=== PATIENT | female | born 1955 | race Caucasian/White ===

== ENCOUNTER → 2016-11-07 16:36 | Outpatient (CLI) | payer BC ==
[2013-12-16 13:32] VITALS: BMI 30.9
[~2016-11-07 16:36] MED LIST: AMBIEN10 MG PO; AMBIEN5 MG PO; AVAPRO300 MG PO; HYDROCHLOROTHIA25 MG PO; PRAVACHOL40 MG PO; PRILOSEC20 MG PO; PROZAC40 MG PO; XANAX0.5 MG PO
== END | disposition home or self-care (01) ==
LOC: D.MAMMO 14:45
DX: Z12.31 Encounter for screening mammogram for malignant neoplasm of breast (principal)

== ENCOUNTER → 2017-05-26 15:42 | Outpatient (CLI) | payer BC ==
[2013-12-16 13:32] VITALS: BMI 30.9
== END | disposition home or self-care (01) ==
LOC: D.CT 15:42
DX: R19.01 Right upper quadrant abdominal swelling, mass and lump (principal)

== ENCOUNTER → 2017-11-20 07:20 | Outpatient (CLI) | payer BC ==
[2013-12-16 13:32] VITALS: BMI 30.9
[2017-11-20 08:30] LABS: ALBUMIN 4.1 g/dL (3.4-5.0); BILIRUBIN - DIRECT 0.07 mg/dL (0.00-0.30); BILIRUBIN - INDIRECT 0.19 mg/dL (0.00-1.00); BILIRUBIN - TOTAL 0.26 mg/dL (0.2-1.3); PROTEIN - SERUM 8.1 g/dL (6.4-8.2)
== END | disposition home or self-care (01) ==
LOC: D.US 11-18 09:30
PROVIDERS: Internal Medicine Gastroenterology
DX: R79.89 Other specified abnormal findings of blood chemistry (principal)

== ENCOUNTER → 2018-01-15 15:55 | Outpatient (CLI) | payer BC ==
[2013-12-16 13:32] VITALS: BMI 30.9
== END | disposition home or self-care (01) ==
LOC: D.CT 15:55
DX: R22.9 Localized swelling, mass and lump, unspecified (principal)

== ENCOUNTER → 2018-01-21 18:27 | Outpatient (CLI) | payer BC ==
[2013-12-16 13:32] VITALS: BMI 30.9
== END | disposition home or self-care (01) ==
LOC: D.MAMMO 16:15
DX: Z12.31 Encounter for screening mammogram for malignant neoplasm of breast (principal)

== ENCOUNTER → 2018-05-14 06:55 | Outpatient (CLI) | payer BC ==
[2013-12-16 13:32] VITALS: BMI 30.9
[2018-05-14 09:09] LABS: ALBUMIN 4.1 g/dL (3.4-5.0); BILIRUBIN - DIRECT 0.12 mg/dL (0.00-0.30); BILIRUBIN - INDIRECT 0.24 mg/dL (0.00-1.00); BILIRUBIN - TOTAL 0.36 mg/dL (0.2-1.3); PROTEIN - SERUM 8.2 g/dL (6.4-8.2)
== END | disposition home or self-care (01) ==
LOC: D.US 06:55
PROVIDERS: Internal Medicine Gastroenterology
DX: K76.0 Fatty (change of) liver, not elsewhere classified (principal)

== ENCOUNTER 2018-08-21 10:29 | Observation (INO) | payer BC ==
[~2018-08-21] VITALS: Ht 162.6 cm; Wt 78.6 kg
--- NOTE | ~2018-08-21 | HEMODYNAMI ---
PATIENT:RAYMOND QUICK MEDICAL RECORD: [id number] : 59 LOCATION:[facility] D.2110 ADMISSION DATE: 08/21/18 Generatedon:08/23/20189:00 Patient name: RAYMOND QUICK Patient #: [id number] SSN: : 1955 Date of study: 08/23/2018 Page: Of Hemodynamic Procedure Report Patient Data Patient Demographics Procedure consent was obtained First Name: RAYMOND Gender: Female Last Name: ABDELRAHMAN : 1955 Middle Initial: JOANN Age: 63 year(s) Patient #: [id number] Race: Unknown Additional ID: [id number] Contact details [address]: [address] [place] [address] State: [place] City: [place] Zip code: [address] Admission Admission Data Admission Date: 08/21/2018 Admission Time: 12:05 Room #: D.0 Weight (lbs.): 174.17 Weight (kg.): 79 Procedure Procedure Types Cath Procedure Diagnostic Procedure C LH w/Coronaries Procedure Description Procedure Date Procedure Date: 08/23/2018 Procedure Start Time: 8:46 Procedure End Time: 8:58 Procedure Staff Name Function Jono Merchant MD Performing Physician Deborah Cavanaugh RT Monitor Hilda Arellano RT Scrub Susanna Oliveros RN Nurse Procedure Data Cath Procedure Fluoroscopy Diagnostic fluoroscopy Total fluoroscopy Time: 1.3 time: 1.3 min min Diagnostic fluoroscopy Total fluoroscopy dose: 352 dose: 352 mGy mGy Contrast Material Contrast Material Type Amount (ml) Isovue 300 54 Entry Location Entry Primary Successful Side Size Upsize Upsize Entry Closure Succes sful Closure Location (Fr) 1 (Fr) 2 (Fr) Remarks Device Remarks Femoral Right 5 Fr Exoseal artery Estimated blood loss: 5 ml Diagnostic catheters Device Type Used For End Catheter Placement MULTIPACK JL 4.0 5Fr Procedure catheter MULTIPACK 3DRC 5Fr Procedure catheter MULTIPACK Pigtail 5 Fr Procedure catheter Procedure Complications No complications Procedure Medications Medication Administration Route Dosage 0.9% NaCl I.V. 100 ml/hr Oxygen etCO2 Nasal cannula 2 l/min Lidocaine 2% added to field 20 Heparin Flush Bag added to field 2 bags (1000units/500ml NS) Versed I.V. 2 mg Fentanyl I.V. 50 mcg Versed I.V. 2 mg Fentanyl I.V. 50 mcg Hemodynamics Rest Heart Rate: 73 (bpm) Pressure Samples Time Site Value (mmHg) Purpose Heart Use Rate(bpm) 8:53 LV 135/2,17 Snapshot 85 8:54 AO 138/81(108) Pullback 83 8:54 LV 142/4,23 Pullback 83 Gradients Valve Time Site 1 Site 2 Mean SEP/DFP Peak To Heart Use (mmHg) (sec/min) Peak Rate (mmHg) (bpm) Aortic 8:54 LV AO 5 23 4 83 142/4,23 138/81(108) Calculations Valve P-P Mean Valve Index Valve Source Name Gradient Area Flow (cm2) Aortic 4 5 4 5 Snapshots Pre Cath Intra NCS Post Cath Vital Signs Time Heart Resp SPO2 etCO2 NIBP (mmHg) Rhythm Pain Sedation Rate (ipm) (%) (mmHg) Status Level (bpm) 8:28:29 76 16 100 35.2 142/88(129) NSR 0 (11) 10(A) , No pain 8:32:49 76 21 99 29.9 144/84(120) NSR 0 (11) 10(A) , No pain 8:37:01 79 17 98 38.9 132/79(108) NSR 0 (11) 10(A) , No pain 8:41:17 83 16 98 37.4 130/83(107) NSR 0 (11) 10(A) , No pain 8:45:31 83 14 97 38.1 130/79(102) NSR 0 (11) 10(A) , No pain 8:49:49 82 14 98 36.7 127/80(98) NSR 0 (11) 9(A) , No pain 8:54:03 84 14 98 38.9 132/83(107) NSR 0 (11) 9(A) , No pain 8:58:19 80 12 98 45.6 133/82(103) NSR 0 (11) 9(A) , No pain Medications Time Medication Route Dose Verified Delivered Reason Notes Effe ctiveness by by 8:26:37 0.9% NaCl I.V. 100 Jono Susanna used for ml/hr Mayur Oliveros market research associate 8:26:44 Oxygen etCO2 2 Jono Susanna used for Nasal l/min Mayur Oliveros procedure cannula RN 8:26:49 Lidocaine 2% added 20ml Jono Jono for local to vial Mayur Merchant MD anesthetic field 8:26:53 Heparin Flush added 2 Jono Jono used for Bag to bags Mayur Merchant MD procedure (1000units/500ml field NS) 8:44:01 Fentanyl I.V. 50 Jono Susanna for mcg Mayur Oliveros sedation RN 8:44:51 Versed I.V. 2 mg Jono Susanna for Mayur Oliveros sedation RN 8:49:03 Versed I.V. 2 mg Jono Susanna for Mayur Oliveros sedation RN 8:49:09 Fentanyl I.V. 50 Jono Susanna for mcg Mayur Oliveros sedation security services manager Log Time Note 8:03:01 Signed procedure consent form obtained from patient. 8:03:03 Diagnostic Cath status Elective 8:03:07 Time tracking: Regular hours (M-F 7:00 - 5:00) 8:03:11 Plan of Care:Hemodynamics will remain stable., Cardiac rhythm will remain stable., Comfort level will be maintained., Respiratory function will remain adequate., Patient/ family verbilizes understanding of procedure., Procedure tolerated without complication., Recovers from procedure without complications.. 8:16:19 Hilda Arellano RT(R) sent for patient. Start room use. 8:26:37 0.9% NaCl 100 ml/hr I.V. was administered by Susanna Oliveros RN; used for procedure; 8:26:44 Oxygen 2 l/min etCO2 Nasal cannula was administered by Susanna Oliveros RN; used for procedure; 8:26:49 Lidocaine 2% 20ml vial added to field was administered by Jono Merchant MD; for local anesthetic; 8:26:53 Heparin Flush Bag (1000units/500ml NS) 2 bags added to field was administered by Jono eMrchant MD; used for procedure; 8:27:17 Vital chart was started 8:27:46 Patient received from Pre/Post Procedure Room to CCL 1 Alert and oriented. Tansferred to table in Supine position. 8:27:48 Warm blankets applied, and namita hugger turned on for patient comfort. 8:27:48 Correct patient and procedure confirmed by team. 8:27:50 ECG and BP/O2 sat monitors applied to patient. 8:27:52 Baseline sample Acquired. 8:27:55 Rhythm: sinus rhythm 8:27:57 Full Disclosure recording started 8:28:01 H&P Date Dictated: 08/23/2018 New H&P dictated by physician.. 8:28:03 Pre-procedure instructions explained to patient. 8:28:03 Pre-op teaching completed and patient verbalized understanding. 8:28:04 Family in waiting room. 8:28:05 Patient NPO since Midnight. 8:28:08 Is the patient allergic to Iodine/contrast media? No. 8:28:09 Was the patient premedicated? No 8:28:17 Is patient on blood thinner?No 8:28:19 Patient diabetic? No. 8:28:23 Previous problem with sedation/anesthesia? No ? 8:28:25 Snore? Yes 8:28:26 Sleep apnea? Yes 8:28:27 Deviated septum? No 8:28:28 Opens mouth fully? Yes 8:28:29 Sticks out tongue? Yes 8:28:31 Airway obstruction? No ? 8:28:34 Dentures? No ? 8:28:38 Pre procedure: right dorsailis pedis pulse 2+ Normal; easily identifiable; not easily obliterated 8:28:40 Pre procedure: left dorsailis pedis pulse 2+ Normal; easily identifiable; not easily obliterated 8:28:42 Patient pain scale 0/10 ?. 8:28:50 IV patent on arrival in right wrist with 0.9% NaCl at KVO. 8:28:52 Lab results completed and on chart. 8:28:56 Right groin area was prepped with chlora-prep and draped in sterile fashion 8:28:57 Alarms reviewed by R. N. 8:28:58 Sharps counted by scrub and verified by R.N. 8:30:04 Use device set Femoral Dx 8:30:09 ACIST Syringe (09657) opened to sterile field. 8:30:10 Bag Decanter (2002S) opened to sterile field. 8:30:12 ACIST Hand Control (23845) opened to sterile field. 8:30:13 ACIST Manifold (96720) opened to sterile field. 8:30:14 Tegaderm 4 x 4 (1626W) opened to sterile field. 8:30:15 Medline Cath Pack ([id number]) opened to sterile field. 8:30:15 DIAGNOSTIC WIRE .035 260cm J wire (022705) opened to sterile field. 8:30:16 DIAGNOSTIC Multipack 5Fr catheter set ([id number]) opened to sterile field. 8:30:17 SHEATH 5FR [place] (IKF288) opened to sterile field. 8:40:02 Zero performed for pressure channel P1 8:42:48 --------ALL STOP TIME OUT------ 8:42:49 Final Timeout: patient, procedure, and site verified with staff and physician. All members of the team are in agreement. 8:42:50 Right groin site verified by team. 8:42:53 Maximum allowable Isovue 300 dose 300ml. Physician notified. (300ml for normal creatinines. For patients with creatinine of 1.7 or higher multiply weight(kg) x 5 divided by creatinine.) 8:42:57 Fire Safety Assessment: A--An alcohol-based skin anteseptic being used preoperatively., C--Open oxygen or nitrous oxide is being used., D--An ESU, laser, or fiber-optic light is being used. 8:43:00 Physical assessment completed. ASA score P 2 - A patient with mild systemic disease as per Jono Merchant MD. 8:43:02 Sedation plan: IV Moderate Sedation Medication:Versed, Fentanyl 8:44:01 Fentanyl 50 mcg I.V. was administered by Susanna Oliveros RN; for sedation; 8:44:05 Patient Weight : 174.17 lbs 8:44:51 Versed 2 mg I.V. was administered by Susanna Oliveros RN; for sedation; 8:46:10 Procedure started. 8:46:27 Local anesthetic to right femoral artery with Lidocaine 2% by Jono Merchant MD.INITIAL ACCESS ONLY 8:48:05 A 5 Fr sheath was inserted into the Right Femoral artery 8:49:00 A MULTIPACK JL 4.0 5Fr catheter was advanced over the wire and used for Procedure. 8:49:03 Versed 2 mg I.V. was administered by Susanna Oliveros RN; for sedation; 8:49:09 Fentanyl 50 mcg I.V. was administered by Susanna Oliveros RN; for sedation; 8:49:55 LCA angiography performed. 8:50:17 Catheter exchanged over wire. 8:50:52 A MULTIPACK 3DRC 5Fr catheter was advanced over the wire and used for Procedure. 8:51:41 RCA angiography performed. 8:51:52 Catheter exchanged over wire. 8:52:37 A MULTIPACK Pigtail 5 Fr catheter was advanced over the wire and used for Procedure. 8:53:08 LV gram done using REES 8:53:28 Injector settings: Ml/sec: 10, Volume: 20, 8:53:30 LV hemodynamics recorded. 8:53:40 EF : 55 % 8:54:08 Catheter removed. 8:54:10 EXOSEAL 5Fr (EX500) opened to sterile field. 8:55:33 Sheath removed intact; hemostasis achieved with Exoseal to the Right Femoral artery. 8:55:35 Procedure ended.(Physican Out) 8:55:51 Fluoroscopy time 01.30 minutes. 8:55:55 Fluoroscopy dose: 352 mGy 8:55:55 Flurop Dose total: 352 8:56:12 Contrast amount:Isovue 300 54ml. 8:56:14 Sharps counted by scrub and verified by R.N. 8:56:16 Post-op/insertion site Right Femoral artery dressed using a 4 x 4 and Tegaderm. 8:56:19 Post-procedure physical assessment completed. ASA score P 2 - A patient with mild systemic disease as per Jono Merchant MD. 8:56:22 Post procedure rhythm: sinus rhythm 8:56:25 Estimated blood loss: 5 ml 8:56:38 Post procedure instruction explained to patient.Patient verbalizes understanding. 8:56:38 Patient needs reinforcement of post procedure teaching. 8:57:23 Procedure and supply charges have been captured, reviewed, submitted and are correct. 8:57:26 Procedure Complication : No complications 8:58:25 Vital chart was stopped 8:58:25 See physician's report for complete and final results. 8:58:28 Report given to [facility]. 8:58:30 Patient transfered to Med II with Bed. 8:58:32 Procedure ended. 8:58:32 Full Disclosure recording stopped 8:58:37 End room use (Document Last) Device Usage Item Name Manufacture Quantity Catalog Hospital Part Current Minimal L ot# / Number Charge Number Stock Stock Serial# Code [id number] Acist 1 46564 [id number] 636085 336905 20 Syringe Medical (45295) Systems Inc Bag Microtek 1 2001S 684716 58784 806539 5 Decanter Medical Inc. (2001S) ACIST Hand Acist 1 77623 942687 144824 254728 5 Control Medical (36155) Systems Inc ACIST Acist 1 27220 057460 278752 870089 5 Manifold Medical (19825) Systems Inc Tegaderm 4 3M 1 1626W 948247 932349 979359 5 x 4 (1626W) Medline Medline 1 [id number] 822499 24795 104880 5 Cath Pack ([id number]) DIAGNOSTIC [facility] [place] 1 492893 865708 517668 409471 30 WIRE .035 260cm J wire (116830) DIAGNOSTIC Cardinal 1 GY1807 707505 33214 445232 30 Multipack Health 5Fr catheter set (LQ8884) SHEATH 5FR Terumo 1 QMI322 531757 666709 491576 5 [place] (LJB307) MULTIPACK Cardinal 1 099995 5 JL 4.0 5Fr Health catheter MULTIPACK Cardinal 1 410721 5 3DRC 5Fr Health catheter MULTIPACK Cardinal 1 525554 5 Pigtail 5 Health Fr catheter EXOSEAL 5Fr Cardinal 1 EX500 268927 340436 708596 10 (EX500) Health Signature Audit [place] Stage Time Signature Unsigned Intra-Procedure 08/23/2018 Deborah Cavanaugh 9:00:43 AM RT(R) Signatures Monitor : Deborah Cavanaugh Signature : RT Date : Time : [place] [address]
[2018-08-21] MEDS ORDERED: BUPROPION HCL100 MG PO ×2 (10:36→13:14)
[2018-08-21] MEDS ORDERED: EDARBYCLOR 40-1 EAC1 PO (10:37)
[2018-08-21] MEDS ORDERED: [UNRECOGNIZED DRUG - OTHER] (10:38)
[2018-08-21] MEDS ORDERED: SEMAGLUTIDE (10:38)
[2018-08-21] MEDS ORDERED: CO Q-10400 MG PO ×2 (10:38→13:03)
[2018-08-21] MEDS ORDERED: BAYER CHEWABLE81 MG PO (10:38)
[2018-08-21 10:51] LABS: BASOPHILS 0.4 % (0-2); EOSINOPHILS 1.3 % (0-7); HEMATOCRIT 38.6 % (36.0-48.0); HEMOGLOBIN 13.5 g/dL (12-16); IMMATURE GRANULOCYTES 0.2 % (0-5); LYMPHOCYTES 47.7 % (15-50); MCH 32.1 pg (26.0-34.0); MCV 91.7 fL (80.0-100.0); MEAN PLATELET VOLUME 9.7 fL (7.4-10.4); MONOCYTES 9.8 % (2-11); NEUTROPHILS 40.6 % (40-80); PLATELET COUNT 227 10x3/uL (130-400); RBC 4.21 10x6/uL (4.00-5.40); WBC 4.8 10x3/uL (4.8-10.8)
[2018-08-21 10:55] LABS: APTT 27.6 SECONDS (22.8-39.4); INR 0.99 (0.85-1.17); PROTIME 12.6 SECONDS (11.6-15.0)
[2018-08-21 11:11] VITALS: BP 135/79
[2018-08-21 11:19] LABS: ALBUMIN 4.3 g/dL (3.4-5.0); ALKALINE PHOSPHATASE 90 U/L (46-116); ALT (SGPT) 49 U/L (10-68); CALC OSMOLALITY 275 mosm/kg (275-300); CALCIUM 9.3 mg/dL (8.5-10.1); CHLORIDE - SERUM 103 mmol/L (98-107); CREATININE - SERUM 0.6 mg/dL (0.6-1.3); GLUCOSE 85 mg/dL (74-106); POTASSIUM - SERUM 4.4 mmol/L (3.5-5.1); PROTEIN - SERUM 8.5 g/dL (6.4-8.2); SODIUM 139 mmol/L (136-145); UREA NITROGEN 11 mg/dL (7-18); eGFR NON AFRICAN AMERICAN > 90 mL/min (90-120)
[2018-08-21 11:28] LABS: CREATINE KINASE 556 UL (21-215); TROPONIN-I < 0.017 ng/mL (0.000-0.060)
[2018-08-21 12:16] VITALS: BP 134/93
[2018-08-21 12:46] VITALS: BP 146/85; BMI 30.1
--- NOTE | 2018-08-21 12:56 | NUR ---
BILAT SCDS ON.
[2018-08-21] MEDS ORDERED: EDARBI40 MG PO (13:06)
[2018-08-21] MEDS ORDERED: PRAVACHOL20 MG PO (13:10)
--- NOTE | 2018-08-21 13:17 | NUR ---
ALERT AND ORIENTED. NITRO PATCH PLACED ON PATIENT ORDERED. MED REC COMPLETED PER NURSE/PATIENT. NO C/O PAIN AT THIS TIME.
[2018-08-21 14:22] VITALS: Ht 162.6 cm; Wt 78.6 kg
--- NOTE | 2018-08-21 14:39 | NUR ---
HAS JOHN LE SCD'S ON.
--- NOTE | 2018-08-21 16:45 | NUR ---
NO CHANGE IN ASSESSMENT. FAMILY AT BS. CL IN REACH. SCDS AND TELEMETRY PLACED ON PATIENT. CL IN REACH. SAFETY INSTRUCTIONS GIVEN TO USE CL FOR ASSIST AND FALL PREVENTION.
[2018-08-21 16:47] VITALS: BP 107/69
[2018-08-21 17:04] LABS: CKMB 1.9 U/L (0.0-3.6); CREATINE KINASE 420 UL (21-215); TROPONIN-I < 0.017 ng/mL (0.000-0.060)
[2018-08-21 19:50] VITALS: BP 127/69
[2018-08-21 19:55] LABS: APPEARANCE CLEAR (CLEAR); BILIRUBIN NEGATIVE (NEGATIVE); COLOR YELLOW (YELLOW); GLUCOSE NEGATIVE (NEGATIVE); KETONE NEGATIVE (NEGATIVE); NITRITE NEGATIVE (NEGATIVE); PROTEIN NEGATIVE (NEGATIVE); UROBILINOGEN NORMAL (NORMAL)
--- NOTE | 2018-08-21 20:00 | NUR ---
EVENING ROUNDS COMPLETED. REPORT RECEIVED. PT SITTING UP IN BED WITH EYES OPEN, RR EVEN AND UNLABORED. BED IN LOW POSITION. NO S/S OF DISTRESS NOTED. INTRODUCED SELF TO PT. PT DENIES FURTHER NEEDS AT THIS TIME. URINE COLLECTED ORDERED AND SENT TO LAB. CALL LIGHT IN REACH. 82 SINUS ON TELEMETRY. RIGHT FOREARM PIV INFUSING NORMAL SALINE ORDERED. WILL CTM.
[2018-08-21 22:13] LABS: CKMB 1.5 U/L (0.0-3.6); CREATINE KINASE 403 UL (21-215)
[2018-08-21 22:14] LABS: TROPONIN-I < 0.017 ng/mL (0.000-0.060)
[2018-08-21 23:55] VITALS: BP 122/73
--- NOTE | 2018-08-22 02:03 | NUR ---
I have reviewed this patient and I concur with the Shift Assessment completed by the Licensed Practical Nurse today this shift.
[2018-08-22 02:45] LABS: BASOPHILS 0.4 % (0-2); EOSINOPHILS 2.6 % (0-7); HEMATOCRIT 35.8 % (36.0-48.0); IMMATURE GRANULOCYTES 0.2 % (0-5); MCH 31.2 pg (26.0-34.0); MCHC 33.5 g/dL (31.0-37.0); MEAN PLATELET VOLUME 9.8 fL (7.4-10.4); MONOCYTES 13.2 % (2-11); NEUTROPHILS 41.6 % (40-80); PLATELET COUNT 189 10x3/uL (130-400); RBC 3.85 10x6/uL (4.00-5.40); WBC 4.7 10x3/uL (4.8-10.8)
[2018-08-22 02:59] LABS: CALCIUM 8.7 mg/dL (8.5-10.1); CARBON DIOXIDE 25.8 mmol/L (21.0-32.0); CHLORIDE - SERUM 106 mmol/L (98-107); CKMB 1.4 U/L (0.0-3.6); CREATINE KINASE 332 UL (21-215); CREATININE - SERUM 0.7 mg/dL (0.6-1.3); GLUCOSE 96 mg/dL (74-106); SODIUM 139 mmol/L (136-145); eGFR NON AFRICAN AMERICAN 90 mL/min (90-120)
[2018-08-22 03:02] LABS: CALC OSMOLALITY 278 mosm/kg (275-300); TROPONIN-I < 0.017 ng/mL (0.000-0.060); UREA NITROGEN 16 mg/dL (7-18)
[2018-08-22 03:55] VITALS: BP 118/67
[2018-08-22 04:30] VITALS: BP 117/64
--- NOTE | 2018-08-22 07:30 | NUR ---
REPORT RECIEVED AND MORNING ROUNDING COMPLETE. PT LATIN IN BED IN SUPINE POSITION. EYES CLOSED BREATHING EVEN AND UN LABORED. NC @ 3L, AND PIV PATIENT AND RUNNING NS AT KVO. PT HAS SCDS ON AND RUNNING AT THIS TIME. CALL LIGHT WITHIN REACH AND BED IN LOWEST POSITION.
[2018-08-22 08:10] VITALS: BP 117/72
[2018-08-22 13:10] VITALS: BP 129/73
--- NOTE | 2018-08-22 13:16 | NUR ---
I have reviewed this patient and I concur with the Shift Assessment completed by the Licensed Practical Nurse today this shift.
[2018-08-22 16:20] VITALS: BP 120/70
--- NOTE | 2018-08-22 19:42 | NUR ---
EVENING ROUNDS COMPLETED. REPORT RECEIVED. PT SITTING UP IN BED SIDE CHAIR WITH EYES OPEN, RR EVEN AND UNLABORED. RIGHT FOREARM INFUSING NORMAL SALINE ORDERED. NO S/S OF DISTRESS NOTED. INTRODUCED SELF TO PT. PT DENIES FURTHER NEEDS AT THIS TIME. CALL LIGHT IN REACH. WILL CTM.
[2018-08-23 00:25] VITALS: BP 133/74
--- NOTE | 2018-08-23 04:36 | NUR ---
PT LYING IN BED WITH EYES CLOSED, RR EVEN AND UNLABORED. BED IN LOW POSITION. NO S/S OF DISTRESS. 88 NORMAL SINUS ON TELEMETRY. CALL LIGHT IN REACH. WILL CTM.
[2018-08-23 05:33] VITALS: BP 125/77
[2018-08-23 06:08] LABS: BASOPHILS 0.8 % (0-2); EOSINOPHILS 1.8 % (0-7); HEMATOCRIT 35.6 % (36.0-48.0); HEMOGLOBIN 11.8 g/dL (12-16); LYMPHOCYTES 42.4 % (15-50); MCH 30.9 pg (26.0-34.0); MCHC 33.1 g/dL (31.0-37.0); MCV 93.2 fL (80.0-100.0); MEAN PLATELET VOLUME 9.8 fL (7.4-10.4); MONOCYTES 10.3 % (2-11); NEUTROPHILS 44.7 % (40-80); PLATELET COUNT 185 10x3/uL (130-400); RBC 3.82 10x6/uL (4.00-5.40); WBC 3.9 10x3/uL (4.8-10.8)
--- NOTE | 2018-08-23 06:18 | NUR ---
CHLORHEXIDINE PREP ADMINISTERED TO PT IN PREPARATION FOR BILINGUAL ELEMENTARY SCHOOL TEACHER.
[2018-08-23 06:31] LABS: CALC OSMOLALITY 279 mosm/kg (275-300); CALCIUM 8.9 mg/dL (8.5-10.1); CARBON DIOXIDE 24.6 mmol/L (21.0-32.0); CHLORIDE - SERUM 107 mmol/L (98-107); CREATININE - SERUM 0.7 mg/dL (0.6-1.3); GLUCOSE 97 mg/dL (74-106); POTASSIUM - SERUM 3.6 mmol/L (3.5-5.1); SODIUM 141 mmol/L (136-145); UREA NITROGEN 10 mg/dL (7-18); eGFR NON AFRICAN AMERICAN 90 mL/min (90-120)
--- NOTE | 2018-08-23 07:36 | NUR ---
REPORT RECEIVED. WILL CONTINUE WITH POC. PT CURRENTLY LYING SUPINE. CALL LIGHT W/I REACH. PT IS AAO AND UP AD HELEN. RR EVEN AND UNLABORED ON RA. R.FOR PIV IS SALINE LOCKED. RECEIVED CALL TO PREOP PT. PREOP MEDICATIONS ADMINISTERED. NS INFUSING @KVO VIA R.FOR PIV. NO S/S OF DISTRESS NOTED. WILL CTM.
[2018-08-23 08:47] VITALS: BP 127/76
--- NOTE | 2018-08-23 09:15 | NUR ---
PT RETURNED FROM SENIOR C SOFTWARE ENGINEER WITH CLEAN CATH TO THE RIGHT FEM. CATH SITE IS C/D/I WITH NO S/S OF HEMATOMA PRESENT. PT IS CURRENTLY RESTING. NO S/S OF DISTRESS NOTED. RR EVEN AND UNLABORED ON RA. PERIPHERAL PULSES EVEN AND BILATERAL. NS INFUSING @200ML/HR VIA R.AC PIV. FAMILY AT BEDSIDE. PT DENIES ANY NEEDS. WILL CTM.
--- NOTE | 2018-08-23 09:52 | NUR ---
PT CURRENTLY LYING SUPINE. CALL LIGHT W/I REACH. RR EVEN AND UNLABORED ON RA. NS INFUSING @200ML/HR VIA R.AC PIV. PT DENIES ANY NEEDS. R.FEM CATH SITE IS C/D/I. WILL CTM.
--- NOTE | 2018-08-23 12:26 | NUR ---
PT DISCHARGED HOME VIA WHEELCHAIR. PIV REMOVED WITH CATHETER TIP FULLY INTACT. TELEMETRY REMOVED AND RETURNED. PT SIGNED PROPER DISCHARGE INSTRUCTION AND REMOVED ALL VALUABLES FROM THE ROOM. R.FEM CATH SITE IS C/D/I WITH NO S/S OF HEMATOMA PRESENT.
--- NOTE | 2018-08-24 08:00 | MORECARE ---
CASE MANAGEMENT DISCHARGE SUMMARY PATIENT: RAYMOND QUICK JOANN UNIT: [id number] ADM DATE: 08/21/18 AGE: 63 : 59 SEX: F ROOM/BED: D.2110 AUTHOR: SONAL VELAZCO PHYSICIAN: REFERRING PHYSICIAN: YUN VERA MD DATE OF SERVICE: 08/24/18 Discharge Plan Patient Name: RAYMOND QUICK [facility] 1955 Planned Disposition: Home Anticipated Discharge Date: 08/23/18 Discharge Date: 08/23/2018 Expected LOS: 2 Initial Reviewer: [email or web address] Initial Review Date: 08/24/2018 Generated: 08/24/18 9:00 am Patient Name: RAYMOND QUICK Page [id number] at 0800 All edits/amendments must be made on the electronic document DICTATION DATE: 08/24/18 0800 SPECIAL SERVICES DIRECTOR: JHONNY 08/24/18 0800 RPT#: [id number] DC DATE:08/23/18 STATUS: DIS IN [facility] [address] [facility] [place] [address] END OF REPORT
== END 2018-08-23 12:29 | disposition home or self-care (01) ==
LOC: D.ER 10:29 → OBSVTIME 12:05 → D.EDHOLD 12:05 → D.M2 12:05
PROVIDERS: Family Medicine; ADMIT Internal Medicine Nephrology; ATTEND Internal Medicine Nephrology
DX: R07.9 Chest pain, unspecified (principal); I20.0 Unstable angina; I10 Essential (primary) hypertension; E78.5 Hyperlipidemia, unspecified; K21.9 Gastro-esophageal reflux disease without esophagitis; G47.00 Insomnia, unspecified; F41.9 Anxiety disorder, unspecified

== ENCOUNTER → 2018-10-22 08:28 | Outpatient (CLI) | payer BC ==
[2018-08-21 14:22] VITALS: BMI 30.1
[~2018-10-22 08:28] MED LIST changes: +BAYER CHEWABLE81 MG PO; +BUPROPION HCL100 MG PO; +CO Q-10400 MG PO; +EDARBI40 MG PO; +EDARBYCLOR 40-1 EAC1 PO; +PRAVACHOL20 MG PO; +SEMAGLUTIDE; +[UNRECOGNIZED DRUG - OTHER]
== END | disposition home or self-care (01) ==
LOC: D.MAMMO 08:28
PROVIDERS: ATTEND Nurse Practitioner Family
DX: Z12.31 Encounter for screening mammogram for malignant neoplasm of breast (principal)

== ENCOUNTER → 2018-11-11 08:42 | Outpatient (CLI) | payer BC ==
[2018-08-21 14:22] VITALS: BMI 30.1
[2018-11-11 09:25] LABS: ALBUMIN 4.1 g/dL (3.4-5.0); BILIRUBIN - DIRECT 0.13 mg/dL (0.00-0.30); BILIRUBIN - INDIRECT 0.45 mg/dL (0.00-1.00); BILIRUBIN - TOTAL 0.58 mg/dL (0.2-1.3); PROTEIN - SERUM 7.9 g/dL (6.4-8.2)
== END | disposition home or self-care (01) ==
LOC: D.US 08:42
PROVIDERS: ATTEND Internal Medicine Gastroenterology
DX: K76.0 Fatty (change of) liver, not elsewhere classified (principal)

== ENCOUNTER → 2019-03-15 16:30 | Outpatient (CLI) | payer BC ==
[2018-08-21 14:22] VITALS: BMI 30.1
== END | disposition home or self-care (01) ==
LOC: D.MAMMO 16:00
PROVIDERS: ATTEND Family Medicine
DX: Z12.31 Encounter for screening mammogram for malignant neoplasm of breast (principal)

== ENCOUNTER → 2020-01-31 10:12 | Outpatient (CLI) | payer BC ==
[2018-08-21 14:22] VITALS: BMI 30.1
[2020-01-31 10:51] LABS: ALBUMIN 4.2 g/dL (3.4-5.0); BILIRUBIN - DIRECT 0.12 mg/dL (0.00-0.30); BILIRUBIN - INDIRECT 0.32 mg/dL (0.00-1.00); BILIRUBIN - TOTAL 0.44 mg/dL (0.2-1.3); PROTEIN - SERUM 8.1 g/dL (6.4-8.2)
== END | disposition home or self-care (01) ==
LOC: D.US 01-24 08:30
PROVIDERS: ATTEND Internal Medicine Gastroenterology
DX: K76.0 Fatty (change of) liver, not elsewhere classified (principal)

== ENCOUNTER → 2020-08-02 20:44 | Outpatient (CLI) | payer BC ==
[2018-08-21 14:22] VITALS: BMI 30.1
== END | disposition home or self-care (01) ==
LOC: D.MAMMO 07-18 15:15
PROVIDERS: ATTEND Family Medicine
DX: Z12.31 Encounter for screening mammogram for malignant neoplasm of breast (principal)